=== PATIENT | male | born 1955 | race Caucasian/White ===

== ENCOUNTER → 2019-05-09 | Outpatient (REF) | payer BC ==
[2019-05-09 14:42] LABS: CPK CREATINE PHOSPHOKINASE 216 U/L (39-308); RHEUMATOID FACTOR QUANT < 10.0 IU/ML (<15.0); TOTAL PROTEIN 7.1 GM/DL (6.4-8.2)
[2019-05-09 14:50] LABS: PTH INTACT 60.5 PG/ML (18.5-88.0); TOTAL 25(OH) VITAMIN D 19.4 NG/ML (30.0-100.0); VITAMIN B12 LEVEL 651 PG/ML
[2019-05-09 14:51] LABS: FOLATE 16.8 NG/ML
[2019-05-10 12:22] LABS: ALBUMIN % 59.9 % (55.8-66.1); ALPHA-2-GLOBULINS % 8.7 % (7.1-11.8)
[2019-05-10 12:23] LABS: ALBUMIN 4.25 GM/DL (3.29-5.55); ALPHA-1-GLOBULINS 0.28 GM/DL (0.17-0.41); ALPHA-2-GLOBULINS 0.62 GM/DL (0.42-0.99); BETA-1-GLOBULINS 0.47 GM/DL (0.28-0.60); BETA-1-GLOBULINS % 6.6 % (4.7-7.2); BETA-2-GLOBULINS % 5.7 % (3.2-6.5); GAMMA GLOBULIN % 15.1 % (11.1-18.8); GAMMA GLOBULINS 1.07 GM/DL (0.65-1.58)
[2019-05-17 08:15] LABS: ACETYLCHOLINE RCPTOR BINDING A 0.04 nmol/L (0.00-0.24); ANTINUCLEAR ANTIBODIES DIRECT Negative (Negative); CERULOPLASMIN 24.8 mg/dL (16.0-31.0); COPPER PLASMA 83 ug/dL (72-166); LEAD BLOOD ADULT 27 ug/dL (0-4); STRIATIONAL ANTIBODIES Negative (Neg:<1:40); VITAMIN B1 LEVEL WHOLE BLOOD 132.5 nmol/L (66.5-200.0); VITAMIN B6,PYRIDOXAL PHOSPHATE 9.9 ug/L (5.3-46.7); VITAMIN E(ALPHA TOCOPHEROL) 9.7 mg/L (9.0-29.0); VITAMIN E(GAMMA TOCOPHEROL) 0.8 mg/L (0.5-4.9)
[2019-05-17 08:28] LABS: VOLTAGE-GATED POTASSIUM CHANNE SEE SEPARATE REPORT
== END ==
LOC: M LABNEURO 10:43
PROVIDERS: ATTEND Psychiatry & Neurology Neurology
DX: R53.1 Weakness (principal); G72.9 Myopathy, unspecified; G90.09 Other idiopathic peripheral autonomic neuropathy

== ENCOUNTER → 2019-05-25 | Outpatient (CLI) | payer BC ==
[2019-05-25 16:23] LABS: BASO # 0.1 10^3/uL (0.0-0.2); EOS # 0.1 10^3/uL (0.0-0.50); EOS % 2.7 % (0.0-3.0); HEMATOCRIT 43.1 % (42.0-52.0); HEMOGLOBIN 14.3 g/dl (13.5-17.5); LYMPH # 1.2 10^3/uL (1.5-4.5); LYMPH % 22.9 % (24.0-44.0); MEAN CORPUSCULAR HEMOGLOBIN 29.4 pg (27.0-33.0); MEAN CORPUSCULAR HGB CONC 33.2 g/dl (32.0-36.5); MEAN CORPUSCULAR VOLUME 88.7 fl (80.0-96.0); MONO # 0.5 10^3/uL (0.0-0.8); MONO % 9.4 % (0.0-5.0); NEUTROPHILS # 3.3 10^3/uL (1.8-7.7); NEUTROPHILS % 63.8 % (36.0-66.0); PLATELET COUNT, AUTOMATED 213 10^3/uL (150-450); RED BLOOD COUNT 4.86 10^6/uL (4.30-6.10); WHITE BLOOD COUNT 5.1 10^3/uL (4.0-10.0)
[2019-05-25 16:31] LABS: ALBUMIN 3.6 GM/DL (3.2-5.2); ALT/SGPT 58 U/L (12-78); BILIRUBIN,TOTAL 0.3 MG/DL (0.2-1.0); BLOOD UREA NITROGEN 33 MG/DL (7-18); CALCIUM LEVEL 8.9 MG/DL (8.8-10.2); CARBON DIOXIDE LEVEL 32 MEQ/L (21-32); CHLORIDE LEVEL 106 MEQ/L (98-107); CREATININE FOR GFR 0.73 MG/DL (0.70-1.30); GLOMERULAR FILTRATION RATE > 60.0 (>49); GLUCOSE, FASTING 95 MG/DL (70-100); POTASSIUM SERUM 4.1 MEQ/L (3.5-5.1); SODIUM LEVEL 143 MEQ/L (136-145); TOTAL PROTEIN 6.9 GM/DL (6.4-8.2)
== END ==
LOC: M WUC 12:44
PROVIDERS: ATTEND Psychiatry & Neurology Neurology
DX: G12.20 Motor neuron disease, unspecified (principal)